=== PATIENT | male | born 1945 | race Caucasian/White ===

== ENCOUNTER 2017-06-26 12:51 | Emergency (ER) | payer MEDICARE ==
[~2017-06-26] VITALS: Ht 188 cm; Wt 120.0 kg
[~2017-06-26 12:51] MED LIST: AMLO10TA2 PO; ASPI81TA23 PO; LISI20TA3 PO; METO25TA3 PO; OMEP40CA2 PO; SIMV10TA PO
[2017-06-26 13:22] VITALS: BP 137/81; PULSE 146; RESP 22; TEMP 97.9; O2SAT 96
[2017-06-26 13:37] VITALS: BP 139/89; PULSE 145; RESP 26; O2SAT 97
[2017-06-26] MEDS ORDERED: DILTIAZEM HCL 25 MG/5 ML VIAL IV PUSH ONE (13:45)
[2017-06-26] MEDS ORDERED: SODIUM CHLORIDE 0.9% FLUSH 10 ML FLUSH IV FLUSH PRN (13:45)
--- NOTE | 2017-06-26 13:45 | PD ---
HPI Chief Complaint: Cardiac Complaint Time Seen by Provider: 13:27 Travel History International Travel<30 days: No Contact w/Intl Traveler<30days: No Traveled to known affect area: No History of Present Illness HPI This patient went to his primary care physicians for routine follow-up. At that exam it was noted that he had a rapid heart rate. EKG there showed A. fib with RVR which is a new onset of a problem for this patient. He was not having palpitations or chest pain or presyncopal symptoms of any sort. He actually felt quite fine. He is asymptomatic with a heart rate of 150. He has history of remote bypass grafting surgery. Severity is mild. No alleviating factors. No exacerbating factors. The duration is unknown as he presents asymptomatic PFS Past Medical History Heart Rhythm Problems: Yes Cardiovascular Problems: Yes (bypass , states next stress test would be in 2019.) ?: Not Past Surgical History Other Surgery: Yes (hernia surgery ) Social History Alcohol Use: Yes Tobacco Use: No Substance Use: No Allergies-Medications (Allergen,Severity, Reaction): Coded Allergies: No Known Allergies (Unverified , 06/26/17) Reported Meds & Prescriptions Reported Meds & Active Scripts Active Eliquis (Apixaban) 5 Mg Tab 5 Mg PO BID Omeprazole 40 Mg Cap 40 Mg PO DAILY Lisinopril-Hctz 20-25 Mg Tab 1 Tab PO DAILY Metoprolol Tartrate 25 Mg Tab 0.5 Tab PO BID Aspirin EC (Aspirin) 81 Mg Tabdr 81 Mg PO DAILY Amlodipine (Amlodipine Besylate) 10 Mg Tab 10 Mg PO DAILY Simvastatin 10 Mg Tab 10 Mg PO DAILY Review of Systems General / Constitutional: No: Fever Eyes: No: Visual changes HENT: No: Headaches Cardiovascular: No: Chest Pain or Discomfort Respiratory: No: Shortness of Breath Gastrointestinal: No: Abdominal Pain Genitourinary: No: Dysuria Musculoskeletal: No: Pain Skin: No Rash Neurologic: No: Weakness Psychiatric: No: Depression Endocrine: No: Polydipsia Hematologic/Lymphatic: No: Easy Bruising Physical Exam Narrative GENERAL: Well-nourished, well-developed patient in no apparent distress. SKIN: Focused skin assessment reveals no rash and nodules. Skin is Warm and dry. HEAD: Atraumatic. Normocephalic. EYES: Pupils equal and round. No scleral icterus. No injection or drainage. ENT: No nasal bleeding or discharge. Mucous membranes pink and moist. NECK: Trachea midline. No JVD. CARDIOVASCULAR: Irregularly irregular rhythm. No murmur appreciated. Heart rate 140-150 RESPIRATORY: No accessory muscle use. Clear to auscultation. Breath sounds equal bilaterally. GASTROINTESTINAL: Abdomen soft, non-tender, nondistended. Hepatic and splenic margins not palpable. MUSCULOSKELETAL: No obvious deformities. No clubbing. No cyanosis. No edema. NEUROLOGICAL: Awake and alert. No obvious cranial nerve deficits. Motor grossly within normal limits. Normal speech. PSYCHIATRIC: Appropriate mood and affect; insight and judgment normal. Data Data Last Documented VS Vital Signs Date Time Temp Pulse Resp B/P (MAP) Pulse Ox O2 Delivery O2 Flow Rate FiO2 06/26/17 13:55 82 22 136/75 (95) 96 Room Air 06/26/17 13:22 97.9 Orders Orders Ecg Monitoring (06/26/17 13:36) Blood Pressure (06/26/17 13:36) Iv Access Insert/Monitor (06/26/17 13:36) Oximetry (06/26/17 13:36) Vital Signs (06/26/17 13:36) Diltiazem Inj (Cardizem Inj) (06/26/17 13:45) Sodium Chloride 0.9% Flush (Ns Flush) (06/26/17 13:45) Complete Blood Count With Diff (06/26/17 13:36) Basic Metabolic Panel (Bmp) (06/26/17 13:36) Thyroid Stimulating Hormone (06/26/17 13:36) Prothrombin Time / Inr (Pt) (06/26/17 13:36) Act Partial Throm Time (Ptt) (06/26/17 13:36) Electrocardiogram (06/26/17 ) Chest, Single Ap (06/26/17 ) Labs Laboratory Tests Test 06/26/17 13:50 White Blood Count 8.4 TH/MM3 Red Blood Count 4.75 MIL/MM3 Hemoglobin 15.4 GM/DL Hematocrit 43.9 % Mean Corpuscular Volume 92.4 FL Mean Corpuscular Hemoglobin 32.4 PG Mean Corpuscular Hemoglobin Concent 35.0 % Red Cell Distribution Width 13.1 % Platelet Count 188 TH/MM3 Mean Platelet Volume 8.3 FL Neutrophils (%) (Auto) 71.0 % Lymphocytes (%) (Auto) 19.3 % Monocytes (%) (Auto) 8.1 % Eosinophils (%) (Auto) 1.0 % Basophils (%) (Auto) 0.6 % Neutrophils # (Auto) 5.9 TH/MM3 Lymphocytes # (Auto) 1.6 TH/MM3 Monocytes # (Auto) 0.7 TH/MM3 Eosinophils # (Auto) 0.1 TH/MM3 Basophils # (Auto) 0.1 TH/MM3 CBC Comment DIFF FINAL Differential Comment Prothrombin Time 10.0 SEC Prothromb Time International Ratio 1.0 RATIO Activated Partial Thromboplast Time 24.2 SEC Blood Urea Nitrogen 23 MG/DL Creatinine 1.44 MG/DL Random Glucose 112 MG/DL Calcium Level 8.8 MG/DL Sodium Level 138 MEQ/L Potassium Level 4.3 MEQ/L Chloride Level 106 MEQ/L Carbon Dioxide Level 25.2 MEQ/L Anion Gap 7 MEQ/L Estimat Glomerular Filtration Rate 48 ML/MIN Thyroid Stimulating Hormone 3rd Gen 1.590 uIU/ML MDM Medical Decision Making Medical Screen Exam Complete: Yes Emergency Medical Condition: Yes Medical Record Reviewed: Yes Differential Diagnosis A. fib with RVR, SVT, ventricular tachycardia Narrative Course I have reviewed the patient's electronic medical record. EKG done now shows A. fib with RVR Extended cardiac monitoring reveals A. fib with RVR as well I placed an IV and gave him 25 mg IV Cardizem for rate control Labs sent CBC metabolic reviewed. He is a bit of renal insufficiency. Heart rate is now controlled. He is A. fib but running at 90 I placed a call to Dr. Hdz. He has an appointment to establish with Dr. Hdz in 2 weeks' time. Discuss switching from aspirin to formal blood thinner. I don't see any obvious contraindication. I reviewed the case in detail with Dr. Narvaez. He recommends Eliquis BID and stopping aspirin and increasing metoprolol to 50 twice a day. This is all reviewed with the patient. He recommends outpatient follow-up Diagnosis Primary Impression: New onset a-fib Additional Impression: Atrial fibrillation with RVR Additional Instructions: Increase metoprolol to 50 mg twice a day Stop aspirin Start Eliquis therapy which is 5 mg twice a day Follow-up with Dr. Hdz Med/Other Pt SpecificInfo: Prescription(s) given Scripts Apixaban (Eliquis) 5 Mg Tab 5 MG PO BID for Blood Clot Prevention, #60 TAB 0 Refills Prov: Miah Chavez MD 06/26/17 Disposition: 01 DISCHARGE HOME Condition: Stable Miah Chavez MD Jun 26, 2017 13:45
[2017-06-26 13:55] VITALS: BP 136/75; PULSE 82; RESP 22; O2SAT 96
[2017-06-26 14:02] LABS: AUTOMATED NEUTROPHIL # 5.9 TH/MM3 (1.8-7.7); BASOPHIL # 0.1 TH/MM3 (0-0.2); BASOPHIL % 0.6 % (0.0-2.0); EOSINOPHIL # 0.1 TH/MM3 (0-0.4); HEMATOCRIT 43.9 % (39.0-51.0); HEMOGLOBIN 15.4 GM/DL (13.0-17.0); LYMPH % 19.3 % (9.0-44.0); LYMPHOCYTE # 1.6 TH/MM3 (1.0-4.8); MEAN CELL VOLUME 92.4 FL (80.0-100.0); MEAN CORPUSCULAR HEMOGLOBIN 32.4 PG (27.0-34.0); MEAN PLATELET VOLUME 8.3 FL (7.0-11.0); MONO % 8.1 % (0.0-8.0); MONOCYTE # 0.7 TH/MM3 (0-0.9); PLATELET COUNT 188 TH/MM3 (150-450); RED BLOOD COUNT 4.75 MIL/MM3 (4.50-5.90); RED CELL DISTRIBUTION WIDTH 13.1 % (11.6-17.2); WHITE BLOOD COUNT 8.4 TH/MM3 (4.0-11.0)
--- NOTE | 2017-06-26 14:16 | RADRPT ---
EXAM DATE/TIME: 06/26/2017 14:03 [facility] COMPARISON: No previous studies available for comparison. INDICATIONS : Shortness of breath. MEDICAL HISTORY : Arrhythmia SURGICAL HISTORY : CABG. ENCOUNTER: Initial ACUITY: 1 day PAIN SCORE: 0/10 LOCATION: Bilateral chest FINDINGS: A single view of the chest demonstrates the lungs to be symmetrically aerated without evidence of mas s, infiltrate or effusion. Sternal wires and bypass are noted. Mild compensated cardiomegaly. Osse ous structures are intact. CONCLUSION: No acute disease. Presley Lema MD FACR on June 26, 2017 at 14:15 Board Certified Radiologist. This report was verified electronically.
[2017-06-26 14:26] LABS: BICARBONATE 25.2 MEQ/L (21.0-32.0); CALCIUM 8.8 MG/DL (8.5-10.1); CREATININE 1.44 MG/DL (0.60-1.30)
[2017-06-26] MEDS ORDERED: APIX5TAB PO (15:42)
[2017-06-26 16:04] VITALS: BP 121/50
--- NOTE | 2017-06-27 10:56 | EKG ---
Date Performed: 06/26/2017 Time Performed: 13:30:26 PTAGE: 71 years EKG: ATRIAL FLUTTER/TACHYCARDIA WITH RAPID VENTRICULAR RESPONSE POSSIBLE INFERIOR MYOCARDIAL INF ARCTION ST DEPRESSION, CONSIDER SUBENDOCARDIAL INJURY ABNORMAL ECG NO PREVIOUS TRACING DOCTOR: Allyson Fall Interpretating Date/Time 06/27/2017 10:52:11
== END 2017-06-26 16:09 | disposition home or self-care (01) ==
LOC: NEPE 12:51
DX: I48.91 Unspecified atrial fibrillation (principal); R94.31 Abnormal electrocardiogram [ECG] [EKG]
CPT/HCPCS: 71045; 80048; 84443; 85025; 85610; 85730; 93005; 96374

== ENCOUNTER 2017-07-21 09:43 | Emergency (ER) | payer MEDICARE ==
[~2017-07-21] VITALS: Ht 188 cm; Wt 100.0 kg
[~2017-07-21 09:43] MED LIST changes: +APIX5TAB PO
[2017-07-21 09:45] VITALS: BP 194/80; PULSE 78; RESP 22; TEMP 97.8; O2SAT 96
[2017-07-21] MEDS ORDERED: SODIUM CHLORIDE 0.9% FLUSH 10 ML FLUSH IVF PRN (10:00)
--- NOTE | 2017-07-21 10:00 | PD ---
HPI Chief Complaint: Respiratory Distress Time Seen by Provider: 09:57 Travel History International Travel<30 days: No Contact w/Intl Traveler<30days: No Traveled to known affect area: No History of Present Illness HPI 71-year-old male patient with history of CAD status post CABG, hypertension, A. fib currently on Eliquis, follows up with Dr. Hdz, was cardioverted on , and states that since then he has been having shortness of breath and dyspnea on exertion even though his heart rate is better. He has been coughing according to his son and he states that he has been sitting in his recliner because he has trouble going to sleep. He denies any fevers, chest pains, or any other symptoms. Modifying Factors: None Associated Signs & Symptoms: Shortness of breath, dyspnea on exertion, coughing Risk Factors: A. fib PFSH Past Medical History Hx Anticoagulant Therapy: Yes (ELIQUIS) Heart Rhythm Problems: Yes Cardiovascular Problems: Yes (bypass , states next stress test would be in 2019.) Past Surgical History Other Surgery: Yes (hernia surgery ) Social History Alcohol Use: Yes Tobacco Use: No Substance Use: No Allergies-Medications (Allergen,Severity, Reaction): Coded Allergies: No Known Allergies (Unverified , 07/21/17) Reported Meds & Prescriptions Reported Meds & Active Scripts Active Eliquis (Apixaban) 5 Mg Tab 5 Mg PO BID Omeprazole 40 Mg Cap 40 Mg PO DAILY Lisinopril-Hctz 20-25 Mg Tab 1 Tab PO DAILY Amlodipine (Amlodipine Besylate) 10 Mg Tab 10 Mg PO DAILY Simvastatin 10 Mg Tab 10 Mg PO DAILY Reported Metoprolol Tartrate 25 Mg Tab 25 Mg PO BID Review of Systems Except as stated in HPI: all other systems reviewed are Neg Physical Exam Narrative GENERAL: Well-developed elderly white male patient currently in mild respiratory distress. Awake and oriented 3. SKIN: Focused skin assessment warm/dry. HEAD: Atraumatic. Normocephalic. EYES: Pupils equal and round. No scleral icterus. No injection or drainage. ENT: No nasal bleeding or discharge. Mucous membranes pink and moist. NECK: Trachea midline. No JVD. CARDIOVASCULAR: Regular rate and rhythm. No murmur appreciated. RESPIRATORY: No accessory muscle use. Decreased throughout bilaterally. Breath sounds equal bilaterally. GASTROINTESTINAL: Abdomen soft, non-tender, nondistended. Hepatic and splenic margins not palpable. MUSCULOSKELETAL: No obvious deformities. No clubbing. No cyanosis. No edema. NEUROLOGICAL: Awake and alert. No obvious cranial nerve deficits. Motor grossly within normal limits. Normal speech. PSYCHIATRIC: Appropriate mood and affect; insight and judgment normal. Data Data Last Documented VS Vital Signs Date Time Temp Pulse Resp B/P (MAP) Pulse Ox O2 Delivery O2 Flow Rate FiO2 07/21/17 12:06 67 18 133/69 (90) 97 Room Air 07/21/17 10:50 97.8 Orders Orders Complete Blood Count With Diff (07/21/17 09:57) Comprehensive Metabolic Panel (07/21/17 09:57) B-Type Natriuretic Peptide (07/21/17 09:57) Act Partial Throm Time (Ptt) (07/21/17 09:57) Prothrombin Time / Inr (Pt) (07/21/17 09:57) Ckmb (Isoenzyme) Profile (07/21/17 09:57) Troponin I (07/21/17 09:57) Iv Access Insert/Monitor (07/21/17 09:57) Electrocardiogram (07/21/17 09:57) Ecg Monitoring (07/21/17 09:57) Oximetry (07/21/17 09:57) Oxygen Administration (07/21/17 09:57) Chest, Single Ap (07/21/17 09:57) Sodium Chloride 0.9% Flush (Ns Flush) (07/21/17 10:00) Nitroglycerin 2% Oint (Nitroglycerin 2% (07/21/17 10:15) CKMB (07/21/17 10:09) CKMB% (07/21/17 10:09) Albuterol-Ipratropium Neb (Duoneb Neb) (07/21/17 11:30) Methylprednisolone So Succ Inj (Solumedr (07/21/17 12:00) Albuterol-Ipratropium Neb (Duoneb Neb) (07/21/17 12:00) Ed Discharge Order (07/21/17 12:53) Labs Laboratory Tests Test 07/21/17 10:09 White Blood Count 10.7 TH/MM3 Red Blood Count 4.18 MIL/MM3 Hemoglobin 13.3 GM/DL Hematocrit 39.4 % Mean Corpuscular Volume 94.2 FL Mean Corpuscular Hemoglobin 31.8 PG Mean Corpuscular Hemoglobin Concent 33.8 % Red Cell Distribution Width 13.4 % Platelet Count 124 TH/MM3 Mean Platelet Volume 9.2 FL Neutrophils (%) (Auto) 79.1 % Lymphocytes (%) (Auto) 11.4 % Monocytes (%) (Auto) 8.4 % Eosinophils (%) (Auto) 0.9 % Basophils (%) (Auto) 0.2 % Neutrophils # (Auto) 8.5 TH/MM3 Lymphocytes # (Auto) 1.2 TH/MM3 Monocytes # (Auto) 0.9 TH/MM3 Eosinophils # (Auto) 0.1 TH/MM3 Basophils # (Auto) 0.0 TH/MM3 CBC Comment DIFF FINAL Differential Comment Prothrombin Time 10.8 SEC Prothromb Time International Ratio 1.1 RATIO Activated Partial Thromboplast Time 27.8 SEC Blood Urea Nitrogen 30 MG/DL Creatinine 1.69 MG/DL Random Glucose 173 MG/DL Total Protein 6.9 GM/DL Albumin 3.6 GM/DL Calcium Level 8.7 MG/DL Alkaline Phosphatase 76 U/L Aspartate Amino Transf (AST/SGOT) 42 U/L Alanine Aminotransferase (ALT/SGPT) 97 U/L Total Bilirubin 0.7 MG/DL Sodium Level 139 MEQ/L Potassium Level 4.6 MEQ/L Chloride Level 106 MEQ/L Carbon Dioxide Level 23.4 MEQ/L Anion Gap 10 MEQ/L Estimat Glomerular Filtration Rate 40 ML/MIN Total Creatine Kinase 105 U/L Creatine Kinase MB 2.2 NG/ML Troponin I LESS THAN 0.02 NG/ML B-Type Natriuretic Peptide 230 PG/ML MDM Medical Decision Making Medical Screen Exam Complete: Yes Emergency Medical Condition: Yes Medical Record Reviewed: Yes Interpretation(s) EKG shows sinus rhythm at a rate of 70 bpm with occasional PAC. No signs of acute ST elevations or depressions. Laboratory Tests Test 07/21/17 10:09 Red Blood Count 4.18 MIL/MM3 (4.50-5.90) Platelet Count 124 TH/MM3 (150-450) Neutrophils (%) (Auto) 79.1 % (16.0-70.0) Monocytes (%) (Auto) 8.4 % (0.0-8.0) Neutrophils # (Auto) 8.5 TH/MM3 (1.8-7.7) Blood Urea Nitrogen 30 MG/DL (7-18) Creatinine 1.69 MG/DL (0.60-1.30) Random Glucose 173 MG/DL (74-106) Aspartate Amino Transf (AST/SGOT) 42 U/L (15-37) Alanine Aminotransferase (ALT/SGPT) 97 U/L (12-78) Estimat Glomerular Filtration Rate 40 ML/MIN (>89) Troponin I LESS THAN 0.02 NG/ML B-Type Natriuretic Peptide 230 PG/ML (0-100) Differential Diagnosis Dyspnea on exertion: CHF versus COPD versus pneumonia Narrative Course Chest x-ray did not show any signs of acute pneumonia or infiltrates. No signs of pulmonary edema. Lab work was fairly unremarkable and BNP was unremarkable. EKG did not show significant dysrhythmias. He is back in normal sinus rhythm. At this point, patient's blood pressure had been elevated and he was given nitroglycerin with improvement in blood pressures. However, he was still having shortness of breath and on further questioning he admits he has been coughing more in the last few days as well. He was given Solu-Medrol and several nebulizers in the ER with improvement in breathing and symptoms. I suspect that he may have some underlying bronchitis causing his current symptoms. Saturations are good in the ER at 98% on room air. My plan would be to release him with follow-up to primary care doctor and cardiology. Return for worsening in symptoms as necessary. The plan has been discussed with him he states understanding. Diagnosis Primary Impression: Bronchitis Med/Other Pt SpecificInfo: Prescription(s) given Scripts Prednisone (Prednisone) 50 Mg Tab 50 MG PO DAILY for 5 Days, #5 TAB 0 Refills Prov: Brock Vivas MD 07/21/17 Albuterol 6.7 GM Inh (Proventil Hfa 6.7 GM Inh) 90 Mcg/Act Aer 2 PUFF INH Q4-6H Y for SHORTNESS OF BREATH, #1 INHALER 0 Refills Prov: Brock Vivas MD 07/21/17 Disposition: 01 DISCHARGE HOME Condition: Stable Brock Vivas MD Jul 21, 2017 10:00
[2017-07-21 10:03] VITALS: RESP 20; O2SAT 98
[2017-07-21] MEDS ORDERED: METO25TA3 PO (10:03)
[2017-07-21] MEDS ORDERED: NITROGLYCERIN 2% OINT 1 GM PACKET TOPICAL ONE (10:15)
--- NOTE | 2017-07-21 10:37 | RADRPT ---
EXAM DATE/TIME: 07/21/2017 10:05 [facility] COMPARISON: CHEST SINGLE AP, June 26, 2017, 14:03. INDICATIONS : Short of breath MEDICAL HISTORY : Cardiovascular disease. Arrhythmia SURGICAL HISTORY : CABG. Right shoulder arthroplasty ENCOUNTER: Initial ACUITY: 4 - 6 days PAIN SCORE: 0/10 LOCATION: chest FINDINGS: Median sternotomy wires are noted status post cardiac surgery. The heart is enlarged. The pulmonary v ascular pattern is normal. The lungs are clear. CONCLUSION: Cardiomegaly. No focal infiltrate or pulmonary vascular congestion. Josh Salmeron MD on July 21, 2017 at 10:33 Board Certified Radiologist. This report was verified electronically.
[2017-07-21 10:41] LABS: AUTOMATED NEUTROPHIL # 8.5 TH/MM3 (1.8-7.7); BASOPHIL % 0.2 % (0.0-2.0); EOSINOPHIL # 0.1 TH/MM3 (0-0.4); EOSINOPHIL % 0.9 % (0.0-4.0); HEMATOCRIT 39.4 % (39.0-51.0); HEMOGLOBIN 13.3 GM/DL (13.0-17.0); LYMPH % 11.4 % (9.0-44.0); LYMPHOCYTE # 1.2 TH/MM3 (1.0-4.8); MEAN CELL VOLUME 94.2 FL (80.0-100.0); MEAN CORPUSCULAR HEMOGLOBIN 31.8 PG (27.0-34.0); MEAN CORPUSCULAR HGB CONC 33.8 % (32.0-36.0); MEAN PLATELET VOLUME 9.2 FL (7.0-11.0); MONO % 8.4 % (0.0-8.0); MONOCYTE # 0.9 TH/MM3 (0-0.9); NEUT % 79.1 % (16.0-70.0); PLATELET COUNT 124 TH/MM3 (150-450); RED BLOOD COUNT 4.18 MIL/MM3 (4.50-5.90); RED CELL DISTRIBUTION WIDTH 13.4 % (11.6-17.2); WHITE BLOOD COUNT 10.7 TH/MM3 (4.0-11.0)
[2017-07-21 10:50] VITALS: BP 133/69; PULSE 97; RESP 18; TEMP 97.8; O2SAT 98
[2017-07-21 10:51] LABS: INTERNATIONAL NORMALIZED RATIO 1.1 RATIO; PROTHROMBIN TIME - PATIENT 10.8 SEC (9.8-11.6)
[2017-07-21 11:16] LABS: ALBUMIN 3.6 GM/DL (3.4-5.0); AST (GOT) 42 U/L (15-37); BICARBONATE 23.4 MEQ/L (21.0-32.0); BLOOD UREA NITROGEN 30 MG/DL (7-18); CALCIUM 8.7 MG/DL (8.5-10.1); CHLORIDE 106 MEQ/L (98-107); CREATININE 1.69 MG/DL (0.60-1.30); GLOMERULAR FILTRATION RATE 40 ML/MIN (>89); GLUCOSE,RANDOM 173 MG/DL (74-106); SODIUM (NA) 139 MEQ/L (136-145)
[2017-07-21 11:17] LABS: ALT (GPT) 97 U/L (12-78)
[2017-07-21 11:21] LABS: ALKALINE PHOSPHATASE 76 U/L (45-117); TOTAL BILIRUBIN ADULT 0.7 MG/DL (0.2-1.0); TOTAL PROTEIN 6.9 GM/DL (6.4-8.2); TROPONIN I LESS THAN 0.02 NG/ML (0.02-0.05)
[2017-07-21] MEDS ORDERED: RESP: ALBUTEROL 2.5 MG/IPRATROPIUM 0.5 MG NEB (SCH) INH ONE (11:30)
[2017-07-21] MEDS ORDERED: methylPREDNISolone SOD SUCC 125 MG/2 ML VIAL IV PUSH ONE (12:00)
[2017-07-21 12:06] VITALS: BP 133/69; PULSE 67; RESP 18; O2SAT 97
[2017-07-21] MEDS: RESP: ALBUTEROL 2.5 MG/IPRATROPIUM 0.5 MG NEB (SCH) INH (12:19)
[2017-07-21] MEDS ORDERED: ALBU6.7H INH (12:57)
[2017-07-21] MEDS ORDERED: PRED50 PO (12:57)
--- NOTE | 2017-07-21 20:00 | EKG ---
Date Performed: 07/21/2017 Time Performed: 10:02:04 PTAGE: 71 years EKG: Sinus rhythm WITH OCCASIONAL SUPRAVENTRICULAR PREMATURE COMPLEXES MINIMAL ST DEPRESSION Compared to previous trac ing, previously present atrial flutter is no longer present BORDERLINE ECG PREVIOUS TRACING : 06/26/17 @ [id number] DOCTOR: Allyson Fall Interpretating Date/Time 07/21/2017 19:58:19
== END 2017-07-21 13:20 | disposition home or self-care (01) ==
LOC: NEPE 09:43
DX: J40 Bronchitis, not specified as acute or chronic (principal); R94.31 Abnormal electrocardiogram [ECG] [EKG]; I25.10 Atherosclerotic heart disease of native coronary artery without angina pectoris; I10 Essential (primary) hypertension; I48.91 Unspecified atrial fibrillation; Z95.1 Presence of aortocoronary bypass graft
CPT/HCPCS: 71045; 80053; 82550; 82552; 83880; 84484; 85025; 85610; 85730; 93005; 94640; 94664; 96374; 99285; J2930